=== PATIENT | male | born 1940 | race Caucasian/White ===

== ENCOUNTER 2017-02-27 16:32 | Outpatient (RCR) | payer MEDICARE, SELFPAY ==
[2017-02-27 17:45] LABS: Prothrombin Time (Protime)PT. 22.1 SECONDS (11.7-14.9)
== END 2017-02-27 16:45 | disposition home or self-care (01) ==
LOC: LAB 16:32
PROVIDERS: Family Provider Family Medicine; PCP Family Medicine; Visit Provider Internal Medicine Cardiovascular Disease
DX: I48.0 Paroxysmal atrial fibrillation (principal); Z79.899 Other long term (current) drug therapy
CPT/HCPCS: 36415; 85610

== ENCOUNTER 2017-03-28 13:13 | Outpatient (RCR) | payer MEDICARE, SELFPAY ==
[2017-03-28 13:41] LABS: International Normalized Ratio 2.5; Prothrombin Time (Protime)PT. 26.3 SECONDS (11.7-14.9)
== END 2017-03-28 13:45 | disposition home or self-care (01) ==
LOC: LAB 13:13
PROVIDERS: Family Provider Family Medicine; PCP Family Medicine; Visit Provider Internal Medicine Cardiovascular Disease
DX: I48.91 Unspecified atrial fibrillation (principal); Z79.01 Long term (current) use of anticoagulants; I25.10 Atherosclerotic heart disease of native coronary artery without angina pectoris; Z95.2 Presence of prosthetic heart valve
CPT/HCPCS: 36415; 85610

== ENCOUNTER → 2017-04-24 10:25 | Outpatient (CLI) | payer MEDICARE, SELFPAY ==
[2017-04-24 11:07] LABS: International Normalized Ratio 2.4; Prothrombin Time (Protime)PT. 26.6 SECONDS (11.7-14.9)
== END ==
PROVIDERS: Family Provider Family Medicine; PCP Family Medicine; Visit Provider Internal Medicine Cardiovascular Disease
DX: I48.91 Unspecified atrial fibrillation (principal); I25.10 Atherosclerotic heart disease of native coronary artery without angina pectoris; Z95.2 Presence of prosthetic heart valve; Z79.01 Long term (current) use of anticoagulants
CPT/HCPCS: 36415; 85610

== ENCOUNTER 2017-06-06 12:52 | Outpatient (RCR) | payer MEDICARE, SELFPAY ==
[2017-06-06 14:50] LABS: Prothrombin Time (Protime)PT. 31.5 SECONDS (11.7-14.9)
== END 2017-06-06 13:00 | disposition home or self-care (01) ==
LOC: LAB 12:52
PROVIDERS: Visit Provider Internal Medicine Cardiovascular Disease
DX: I48.91 Unspecified atrial fibrillation (principal); Z79.01 Long term (current) use of anticoagulants; I25.10 Atherosclerotic heart disease of native coronary artery without angina pectoris; Z95.2 Presence of prosthetic heart valve
CPT/HCPCS: 36415; 85610

== ENCOUNTER 2017-07-01 12:09 | Outpatient (RCR) | payer MEDICARE, SELFPAY ==
[2017-07-01 13:30] LABS: International Normalized Ratio 2.6; Prothrombin Time (Protime)PT. 28.1 SECONDS (11.7-14.9)
== END 2017-07-01 13:00 | disposition home or self-care (01) ==
LOC: LAB 12:09
PROVIDERS: Visit Provider Internal Medicine Cardiovascular Disease
DX: I48.91 Unspecified atrial fibrillation (principal); Z79.01 Long term (current) use of anticoagulants; I25.10 Atherosclerotic heart disease of native coronary artery without angina pectoris; Z95.2 Presence of prosthetic heart valve
CPT/HCPCS: 36415; 85610

== ENCOUNTER 2017-08-05 11:51 | Outpatient (RCR) | payer MEDICARE, SELFPAY ==
[2017-08-05 12:17] LABS: International Normalized Ratio 3.1; Prothrombin Time (Protime)PT. 31.8 SECONDS (11.7-14.9)
== END 2017-08-05 13:00 | disposition home or self-care (01) ==
LOC: LAB 11:51
PROVIDERS: Visit Provider Internal Medicine Cardiovascular Disease
DX: I48.91 Unspecified atrial fibrillation (principal); Z79.01 Long term (current) use of anticoagulants; I25.10 Atherosclerotic heart disease of native coronary artery without angina pectoris; Z95.2 Presence of prosthetic heart valve
CPT/HCPCS: 36415; 85610

== ENCOUNTER 2017-08-22 14:24 | Outpatient (RCR) | payer MEDICARE, SELFPAY | END 2017-08-22 16:00 | disposition home or self-care (01) | LOC: LAB 14:24 | PROVIDERS: Visit Provider Internal Medicine Cardiovascular Disease | DX: I25.10 Atherosclerotic heart disease of native coronary artery without angina pectoris (principal); I48.91 Unspecified atrial fibrillation; Z79.01 Long term (current) use of anticoagulants; Z95.2 Presence of prosthetic heart valve | CPT/HCPCS: 36415; 85610 ==

== ENCOUNTER 2017-09-23 11:30 | Outpatient (RCR) | payer MEDICARE, SELFPAY ==
[2017-09-23 12:18] LABS: International Normalized Ratio 2.7; Prothrombin Time (Protime)PT. 28.6 SECONDS (11.7-14.9)
== END 2017-10-20 13:09 | disposition home or self-care (01) ==
LOC: LAB 11:30
PROVIDERS: Visit Provider Internal Medicine Cardiovascular Disease
DX: I25.10 Atherosclerotic heart disease of native coronary artery without angina pectoris (principal); I48.91 Unspecified atrial fibrillation; Z79.01 Long term (current) use of anticoagulants; Z95.2 Presence of prosthetic heart valve
CPT/HCPCS: 36415; 85610

== ENCOUNTER 2017-10-21 13:10 | Outpatient (RCR) | payer MEDICARE, SELFPAY ==
[2017-10-21 13:54] LABS: International Normalized Ratio 2.5; Prothrombin Time (Protime)PT. 26.8 SECONDS (11.7-14.9)
== END 2017-10-21 14:00 | disposition home or self-care (01) ==
LOC: LAB 13:10
PROVIDERS: Visit Provider Internal Medicine Cardiovascular Disease
DX: I25.10 Atherosclerotic heart disease of native coronary artery without angina pectoris (principal); I48.91 Unspecified atrial fibrillation; Z79.01 Long term (current) use of anticoagulants; Z95.2 Presence of prosthetic heart valve
CPT/HCPCS: 36415; 85610

== ENCOUNTER → 2017-11-10 12:23 | Outpatient (CLI) | payer MEDICARE, SELFPAY ==
--- NOTE | 2017-11-10 12:25 | ECHOD_ITS ---
Version 2 Reason For Study: VAVLE REPL EVAL Procedure This was a 2D Doppler, Color Flow transthoracic echocardiogram. The exam was of adequate technical quality. Exam performed in department. Left Ventricle Normal LV size. Segmental dysfunction with preserved ejection fraction (see wall motion). The estimated ejection fraction is 55 %. Paradoxical septal wall motion c/w a post op state and electronic ventricular paced rhythm. There is evidence of diastolic dysfunction. Basal inferoseptal: Hypokinetic. Mid-inferoseptal : Hypokinetic. Mid-anteroseptal : Hypokinetic. Septal [place] : Hypokinetic. Right Ventricle Normal RV size. ICD or pacer leads identified within the right ventricle. Normal systolic function. Atria The left atrium is mildly enlarged. Normal right atrium. ICD or pacer leads identified within the right atrium. No doppler evidence for ASD. Mitral Valve There is moderate mitral annular calcification. Stable appearing bioprosthetic mitral valve apparatus. Trivial transvalvular insufficiency of the mitral valve. Tricuspid Valve Normal tricuspid valve. Moderate (2+) tricuspid valve insufficiency. Right ventricular systolic pressure estimated to be 45 mmHg. Aortic Valve Stable appearing bioprosthetic aortic valve apparatus. Pulmonic Valve The pulmonic valve is not well visualized. Great Vessels Normal sized aortic root. Pericardium/Pleural No pericardial effusion. MMode/2D Measurements & Calculations LVIDd: 5.0 cm IVSd: 1.1 cm LVOT diam: 2.1 cm LVIDs: 3.4 cm LVPWd: 1.0 cm LVOT area: 3.6 cm2 RVDd: 4.3 cm FS: 31.6 % Ao root diam: 2.8 cm LAV(MOD-bp): 73.3 ml LA A4 area: 23.1 cm2 LA dimension: 4.4 cm LAV(MOD-bp) Indexed: 31.9 ml/m2 LAV(MOD-sp2): 71.1 ml LAV(MOD-sp4): 72.6 ml RA A4 area: 17.1 cm2 Doppler Measurements & Calculations Lat Peak E' Mac: 7.6 cm/sec Med Peak E' Mac: 2.8 cm/sec MV V2 max: 244.6 cm/sec MV max P.9 mmHg MV V2 mean: 150.6 cm/sec MV mean P.5 mmHg MV V2 VTI: 54.2 cm MVA(VTI): 0.94 cm2 Ao V2 max: 246.6 cm/sec LV V1 max: 62.9 cm/sec SV(LVOT): 50.8 ml Ao max P.4 mmHg LV V1 max P.6 mmHg Ao V2 mean: 175.3 cm/sec LV V1 mean P.90 mmHg Ao mean P.6 mmHg LV V1 mean: 45.1 cm/sec Ao V2 VTI: 52.7 cm LV V1 VTI: 14.2 cm LC(I,D): 0.96 cm2 LC(V,D): 0.91 cm2 TR max mac: 324.4 cm/sec TR max P.2 mmHg Interpretation Summary Segmental dysfunction with preserved ejection fraction (see wall motion). The estimated ejection fraction is 55 %. Paradoxical septal wall motion c/w a post op state and electronic ventricular paced rhythm. The left atrium is mildly enlarged. There is moderate mitral annular calcification. Stable appearing bioprosthetic mitral valve apparatus. Trivial transvalvular insufficiency of the mitral valve. Moderate (2+) tricuspid valve insufficiency. Stable appearing bioprosthetic aortic valve apparatus. Right ventricular systolic pressure estimated to be 45 mmHg. There is evidence of diastolic dysfunction. ICD or pacer leads identified within the right atrium ICD or pacer leads identified within the right ventricle. Ordering Physician: Taj Cabral Referring Physician: TAY GARBER DO Performed By: Ivanna Chance, RDCS, RVT
== END ==
PROVIDERS: Visit Provider Internal Medicine Cardiovascular Disease
DX: I25.10 Atherosclerotic heart disease of native coronary artery without angina pectoris (principal); I48.1 Persistent atrial fibrillation; Z95.1 Presence of aortocoronary bypass graft; Z95.3 Presence of xenogenic heart valve; Z95.0 Presence of cardiac pacemaker
CPT/HCPCS: 93306

== ENCOUNTER 2017-11-21 12:49 | Outpatient (RCR) | payer MEDICARE, SELFPAY ==
[2017-11-21 13:43] LABS: International Normalized Ratio 2.5; Prothrombin Time (Protime)PT. 26.7 SECONDS (11.7-14.9)
== END 2017-11-21 14:00 | disposition home or self-care (01) ==
LOC: LAB 12:49
PROVIDERS: Referring Provider Internal Medicine Cardiovascular Disease; Visit Provider Internal Medicine Cardiovascular Disease
DX: I48.91 Unspecified atrial fibrillation (principal); I25.10 Atherosclerotic heart disease of native coronary artery without angina pectoris; Z79.01 Long term (current) use of anticoagulants; Z95.2 Presence of prosthetic heart valve
CPT/HCPCS: 36415; 85610

== ENCOUNTER 2017-12-29 13:42 | Outpatient (RCR) | payer MEDICARE, SELFPAY ==
[2017-12-29 15:56] LABS: International Normalized Ratio 2.2; Prothrombin Time (Protime)PT. 24.2 SECONDS (11.7-14.9)
== END 2018-01-16 09:35 | disposition home or self-care (01) ==
LOC: LAB 13:42
PROVIDERS: Referring Provider Internal Medicine Cardiovascular Disease; Visit Provider Internal Medicine Cardiovascular Disease
DX: I48.91 Unspecified atrial fibrillation (principal); I25.10 Atherosclerotic heart disease of native coronary artery without angina pectoris; Z79.01 Long term (current) use of anticoagulants; Z95.2 Presence of prosthetic heart valve
CPT/HCPCS: 36415; 85610

== ENCOUNTER 2018-01-27 09:01 | Outpatient (RCR) | payer MEDICARE, SELFPAY ==
[2018-01-27 09:48] LABS: International Normalized Ratio 2.2; Prothrombin Time (Protime)PT. 24.7 SECONDS (11.7-14.9)
--- OUTSIDE RECORDS SUMMARY | 2018-03-15 07:34 | XMS RPT_ITS ---
:1940 Author Organization OHIP Support Name Relationship Address Phone BROOKS, DEXTER Unavailable Unavailable + [facility] [place] [address] PAULA BAIG Unavailable [address] + [place] [address] R Unavailable Unavailable Unavailable BROOKS, DEXTER Unavailable Unavailable + [place] [address] PAULA BAIG Unavailable [address] + [place] [address] R Unavailable Unavailable Unavailable BROOKS, DEXTER Unavailable Unavailable + [place] [address] PAULA BAIG Unavailable [address] + [place] [address] R Unavailable Unavailable Unavailable BROOKS, DEXTER Unavailable Unavailable + [facility] [place] [place] [address] PAULA BAIG Unavailable [address] + [place] [address] R Unavailable Unavailable Unavailable BROOKS, DEXTER Unavailable Unavailable + [place] [address] PAULA BAIG Unavailable [address] + [place] [address] R Unavailable Unavailable Unavailable BROOKS, DEXTER Unavailable Unavailable + [place] [address] DESTINEY ABIGRA Jovanna Unavailable [address] + [place] [address] R Unavailable Unavailable Unavailable BROOKS, DEXTER Unavailable Unavailable + [place] [address] PAULA BAIG Unavailable [address] + [place] [address] R Unavailable Unavailable Unavailable BROOKS, DEXTER Unavailable Unavailable + [place] [address] PAULA BAIG K Unavailable [address] + [place] [address] R Unavailable Unavailable Unavailable BROOKS, DEXTER Unavailable Unavailable + [place] [address] DESTINEY BAIGRA K Unavailable [address] + [place] [address] R Unavailable Unavailable Unavailable BROOKS, DEXTER Unavailable Unavailable + [place] [address] DESTINEY BAIGRA K Unavailable [address] + [place] [address] R Unavailable Unavailable Unavailable BROOKS, DEXTER Unavailable Unavailable + [place] [address] PAULA BAIG K Unavailable [address] + [place] [address] R Unavailable Unavailable Unavailable BROOKS, DEXTER Unavailable Unavailable + PAULA BAGI K Unavailable [address] + [place] [address] R Unavailable Unavailable Unavailable BROOKS, DEXTER Unavailable Unavailable + PAULA BAIG Unavailable [address] + [place] [address] R Unavailable Unavailable Unavailable BROOKS, DEXTER Unavailable Unavailable + PAULA BAIG K Unavailable [address] + [place] [address] R Unavailable Unavailable Unavailable BROOKS, DEXTER Unavailable Unavailable + PAULA BAIG K Unavailable [address] + [place] [address] R Unavailable Unavailable Unavailable BROOKS, DEXTER Unavailable Unavailable + PAULA BAIG K Unavailable [address] + [place] [address] R Unavailable Unavailable Unavailable BROOKS, DEXTER Unavailable Unavailable + PAULA BAIG K Unavailable [address] + [place] [address] R Unavailable Unavailable Unavailable BROOKS, DEXTER Unavailable Unavailable + DESTINEY BAIGRA K Unavailable [address] + [place] [address] R Unavailable Unavailable Unavailable DEXTER BROOKS Unavailable Unavailable + PAULA BAIG Unavailable [address] + [place] [address] R Unavailable Unavailable Unavailable PAULA BAIG Unavailable NA + [place], [place] R Unavailable Unavailable Unavailable Care Team Providers Name Role Estelle GARBER DO, DR. CROSS Attending Unavailable SHIRLENE TEMPLE, DR. CROSS Primary Care Unavailable Moodispaw, Taj Attending Unavailable MoodispawTaj Referring Unavailable Shirlene, Tay Primary Care Unavailable Moodispaw, Taj Attending Unavailable Moodispaw, Taj Referring Unavailable BrownJason Primary Care Unavailable Moodispaw, Taj Attending Unavailable Moodispaw, Taj Referring Unavailable Shirlene, Tay Primary Care Unavailable Moodispaw, Taj Attending Unavailable Moodispaw, Taj Referring Unavailable BrownJason Primary Care Unavailable Moodispaw, Taj Attending Unavailable Moodispaw, Taj Referring Unavailable Shirlene, Tay Primary Care Unavailable Dori Dunaway Attending Unavailable Brown, Jason Referring Unavailable Moodispaw, Taj Attending Unavailable Moodispaw, Taj Referring Unavailable Shirlene, Tay Primary Care Unavailable Moodispaw, Taj Attending Unavailable Moodispaw, Taj Referring Unavailable Shirlene, Tay Primary Care Unavailable Dori Dunaway Attending Unavailable Shirlene, Tay Referring Unavailable Shirlene, Tay Primary Care Unavailable Moodispaw, Taj Attending Unavailable Moodispaw, Taj Referring Unavailable Shirlene, Tay Primary Care Unavailable Moodispaw, Taj Attending Unavailable Moodispaw, Taj Referring Unavailable Shirlene, Tay Primary Care Unavailable BaiCris feldman Attending Unavailable Moodispaw, Taj Attending Unavailable Brown, Jason Referring Unavailable Shirlene, Tay Primary Care Unavailable Moodispaw, Taj Attending Unavailable Moodispaw, Taj Referring Unavailable Shirlene, Tay Primary Care Unavailable Moodispalaurel, Taj Attending Unavailable MoodispawTaj Referring Unavailable Shirlene, Tay Primary Care Unavailable Moodispalaurel, Taj Attending Unavailable Moodispaw, Taj Referring Unavailable Moodispaw, Taj Attending Unavailable Moodispaw, Taj Referring Unavailable Shirlene, Tay Primary Care Unavailable Emelyn, Dori Attending Unavailable Tay Garber Referring Unavailable Taj Cabral Attending Unavailable Taj Cabral Referring Unavailable Tay Garber Primary Care Unavailable Dori Dunaway Attending Unavailable Jason Seymour Referring Unavailable PROBLEMS PROBLEMS DATE TYPE CONDITION / CODE ATTENDING STATUS SOURCE 01/27/2018 Admitting Hyperlipidemia, SHIRLENE , Active [facility] Diagnosis unspecified / DR. TAY Rico E78.5(ICD-10) Repository 01/27/2018 Admitting Type 2 diabetes [facility], Active [facility] Diagnosis mellitus without DR. TAY Rico complications / Repository E11.9(ICD-10) 01/27/2018 Admitting Benign prostatic [facility], Active [facility] Diagnosis hyperplasia without DR. TAY Rico lower urinary tract Repository symptoms / N40.0(ICD-10) 02/16/2018 Unknown I48.91 - Unspecified [place], Active [facility] atrial fibrillation [facility] / I48.91(ICD-10) Hospital Repository 02/16/2018 Unknown I25.10 - Mood[place]aw, Active [facility] Atherosclerotic [facility] heart disease of Hospital big [place] coronary Repository artery without angina pectoris / I25.10(ICD-10) 01/19/2018 Unknown Z79.01 - correction [facility], Active [facility] (current) use of [facility] anticoagulants / Hospital Z79.01(ICD-10) Repository 12/04/2017 Unknown R07.9 - Chest pain, Moodispaw, Active [facility] unspecified / [facility] R07.9(ICD-10) Hospital Repository 11/03/2017 Unknown I48.1 - Persistent Mood[place], Active [facility] atrial fibrillation [facility] / I48.1(ICD-10) Hospital Repository 11/03/2017 Unknown Z95.1 - Presence of Moodispaw, Active [facility] aortocoronary bypass [facility] graft / Hospital Z95.1(ICD-10) Repository 11/03/2017 Unknown Z95.3 - Presence of Moodispaw, Active [facility] xenogenic heart [facility] valve / Hospital Z95.3(ICD-10) Repository 11/03/2017 Unknown Z95.0 - Presence of Moodispaw, Active [facility] cardiac pacemaker / [facility] Z95.0(ICD-10) Hospital Repository PROCEDURES PROCEDURES No Procedure Records FoundRESULTS RESULTS PROTHROMBIN TIME W/INR Collected: 02/27/2018 Status: F Source: [place] 1:20 PM [facility] [place] CODE TESTS RESULT OUT OF RANGE REFERENCE UNITS LAB L300.4150 11.7-14.9 SECONDS High PROTIME 25.3 LAB L300.4200 Normal INR 2.3 Performed By: #### L300.3900 #### [facility] [address] [facility] [place], [place], [address] PROTHROMBIN TIME W/INR Collected: 01/27/2018 Status: F Source: [place] 9:15 AM [facility] [place] TYPE CODE TESTS RESULT OUT OF RANGE REFERENCE UNITS LAB L300.4150 11.7-14.9 SECONDS High PROTIME 24.7 LAB L300.4200 Normal INR 2.2 Performed By: #### L300.3900 #### [facility] [address] [place], [address] PSA Collected: 01/27/2018 Status: F Source: [place] [facility] 8:24 AM [facility] REPOSITORY TYPE CODE TESTS RESULT OUT OF REFERENCE UNITS RANGE LAB PSA(LOINC) 0.00-4.00 ng/mL Prostate 1.15 Specific Antigen Performed By: #### PSA, LIPID, CMP, GFR #### [address] [address] LIPID Collected: 01/27/2018 Status: F Source: [facility] 8:24 AM [facility] REPOSITORY TYPE CODE TESTS RESULT OUT OF REFERENCE UNITS RANGE LAB CHOL(LOINC 0-200 mg/dL ) Cholesterol 143 Result Comment: Cholesterol Reference Interval: Less than 200 Desirable 200-239 Borderline high risk 240 and above High risk LAB TRIG(LOINC) 0-150 mg/dL Triglycerides 124 Result Comment: Triglyceride Reference Interval: Less than 150 Normal 150-199 Borderline high risk 200-499 High risk 500 or higher Very high risk LAB HD(LOINC) 40-60 mg/dL HDL Low Cholesterol 35 LAB LDL(LOINC) 0-130 mg/dL LDL Cholesterol 83 Performed By: #### PSA, LIPID, CMP, GFR #### [address] [address] CMP Collected: 01/27/2018 Status: F Source: [facility] 8:24 AM [facility] REPOSITORY TYPE CODE TESTS RESULT OUT OF REFERENCE UNITS RANGE LAB GLU(LOINC) 83-110 mg/dL Glucose High Level 120 LAB NA(LOINC) 136-145 mmol/L Sodium Level 141 LAB K(LOINC) 3.5-5.1 mmol/L Potassium Level 4.9 LAB CL(LOINC) 98-107 mmol/L Chloride 104 LAB CO2(LOINC) 23-31 mmol/L CO2 29 LAB EBAL(LOINC mEq/L ) Electrolyte Balance 8.0 LAB BUN(LOINC) 7-18 mg/dL BUN High 35 LAB CRE(LOINC) 0.70-1.30 mg/dL Creatinine High Lvl (s) 1.62 LAB BC(LOINC) 7-27 ratio BUN/Creatinine 22 Ratio LAB CA(LOINC) 8.4-10.2 mg/dL Calcium Lvl 9.0 LAB PROT(LOINC 6.4-8.2 G/dL ) Total Protein 8.1 LAB ALB(LOINC) 3.4-4.8 G/dL Albumin Level 4.2 LAB GLB(LOINC) G/dL Globulin 3.9 LAB AG(LOINC) 1.1-2.5 ratio A/G Ratio 1.1 LAB BILT(LOINC 0.2-1.0 mg/dL ) Bili Total 0.3 LAB AP(LOINC) 40-135 U/L Alk Phos 117 LAB AST(LOINC) 10-40 U/L AST/SGOT 26 LAB ALT(LOINC) 10-35 U/L ALT/SGPT 24 Performed By: #### PSA, LIPID, CMP, GFR #### [place] [address] .GFR Collected: 01/27/2018 Status: F Source: [facility] 8:24 AM [facility] REPOSITORY TYPE CODE TESTS RESULT OUT OF REFERENCE UNITS RANGE LAB GFRAA(LOINC ml/min/1.73 ) sqm GFR 50 [place] Result Comment: GFR Population mean for , Non- Americans Ages 20-29 = 116 mL/min/1.73 sq.m. Ages 30-39 = 107 mL/min/1.73 sq.m. Ages 40-49 = 99 mL/min/1.73 sq.m. Ages 50-59 = 93 mL/min/1.73 sq.m. Ages 60-69 = 85 mL/min/1.73 sq.m. Ages 70+ = 75 mL/min/1.73 sq.m. Chronic Kidney Disease: Less than 60 mL/min/1.73 square meters End Stage Renal Disease: Less than 15 mL/min/1.73 square meters LAB GFRNO(LOINC) ml/min/1.73sqm GFR Non- 42 Result Comment: GFR Population mean for , Non- Americans Ages 20-29 = 116 mL/min/1.73 sq.m. Ages 30-39 = 107 mL/min/1.73 sq.m. Ages 40-49 = 99 mL/min/1.73 sq.m. Ages 50-59 = 93 mL/min/1.73 sq.m. Ages 60-69 = 85 mL/min/1.73 sq.m. Ages 70+ = 75 mL/min/1.73 sq.m. Chronic Kidney Disease: Less than 60 mL/min/1.73 square meters End Stage Renal Disease: Less than 15 mL/min/1.73 square meters Performed By: #### PSA, LIPID, CMP, GFR #### [place] [address] PACEMAKER CHECK Observed: 01/13/2018 Status: F Source: [place] 2:20 PM [facility] [place] [facility] [address] [place] [address]. [address] [place] [address] Pacemaker Check Date of Service: 01/13/18 1245 MR#: [id number] Acct: [id number] Name: ANGELITO BAIG Rep #: [id number] : 1940 From: Dori Dunaway Age/Sex: 77/M [place] [facility] [place]: Signed Billing Codes PM Device Codes: PM Dev Interrogate (Remot 01/13/18 1252 <Electronically signed by Dori Dunaway > Date Dori Dunaway 01/13/18 1420<Electronically signed by Benjie Doran MD> Cosigner Signature: Date (if applicable) Benjie Doran MD CC: PROTHROMBIN TIME W/INR Collected: 12/29/2017 Status: F Source: [place] 1:56 PM [facility] [place] TYPE CODE TESTS RESULT OUT OF RANGE REFERENCE UNITS LAB L300.4150 11.7-14.9 SECONDS High PROTIME 24.2 LAB L300.4200 Normal INR 2.2 Performed By: #### L300.3900 #### [facility] [address] [place], [address] PROTHROMBIN TIME W/INR Collected: 11/21/2017 Status: F Source: [place] 12:52 PM [facility] [place] TYPE CODE TESTS RESULT OUT OF RANGE REFERENCE UNITS LAB L300.4150 11.7-14.9 SECONDS High PROTIME 26.7 LAB L300.4200 Normal INR 2.5 Performed By: #### L300.3900 #### [facility] [address] [place], [place], [address] ECHOCARDIOGRAM COMPLETE Observed: 11/10/2017 Status: F Source: [place] 5:56 PM [facility] [place] [facility] Cardiovascular Services [address] [place] [address] Echo Complete 11/10/17 1307 MR#: [id number] Acct: [id number] Name: ANGELITO BAIG Rep #: [id number] : 1940 77 From: Taj Cabral MD Attending Dr: Taj Cabral MD Status: REG CLI Ordering Dr: Taj Cabral MD Date: 11/10/17 Location: [facility] Sex: M C Admitted: Version 2 Reason For Study: VAVLE REPL EVAL Procedure This was a 2D Doppler, Color Flow transthoracic echocardiogram. The exam was of adequate technical quality. Exam performed in department. Left Ventricle Normal LV size. Segmental dysfunction with preserved ejection fraction (see wall motion). The estimated ejection fraction is 55 %. Paradoxical septal wall motion c/w a post op state and electronic ventricular paced rhythm. There is evidence of diastolic dysfunction. Basal inferoseptal: Hypokinetic. Mid-inferoseptal : Hypokinetic. Mid-anteroseptal : Hypokinetic. Septal [place] : Hypokinetic. Right Ventricle Normal RV size. ICD or pacer leads identified within the right ventricle. Normal systolic function. Atria The left atrium is mildly enlarged. Normal right atrium. ICD or pacer leads identified within the right atrium. No doppler evidence for ASD. Mitral Valve There is moderate mitral annular calcification. Stable appearing bioprosthetic mitral valve apparatus. Trivial transvalvular insufficiency of the mitral valve. Tricuspid Valve Normal tricuspid valve. Moderate (2+) tricuspid valve insufficiency. Right ventricular systolic pressure estimated to be 45 mmHg. Aortic Valve Stable appearing bioprosthetic aortic valve apparatus. Pulmonic Valve The pulmonic valve is not well visualized. Great Vessels Normal sized aortic root. Pericardium/Pleural No pericardial effusion. MMode/2D Measurements AND Calculations LVIDd: 5.0 cm IVSd: 1.1 cm LVOT diam: 2.1 cm LVIDs: 3.4 cm LVPWd: 1.0 cm LVOT area: 3.6 cm2 RVDd: 4.3 cm FS: 31.6 % Ao root diam: 2.8 cm LAV(MOD-bp): 73.3 ml LA A4 area: 23.1 cm2 LA dimension: 4.4 cm LAV(MOD-bp) Indexed: 31.9 ml/m2 LAV(MOD-sp2): 71.1 ml LAV(MOD-sp4): 72.6 ml RA A4 area: 17.1 cm2 Doppler Measurements AND Calculations Lat Peak E' Mac: 7.6 cm/sec Med Peak E' Mac: 2.8 cm/sec MV V2 max: 244.6 cm/sec MV max P.9 mmHg MV V2 mean: 150.6 cm/sec MV mean P.5 mmHg MV V2 VTI: 54.2 cm MVA(VTI): 0.94 cm2 Ao V2 max: 246.6 cm/sec LV V1 max: 62.9 cm/sec SV(LVOT): 50.8 ml Ao max P.4 mmHg LV V1 max P.6 mmHg Ao V2 mean: 175.3 cm/sec LV V1 mean P.90 mmHg Ao mean P.6 mmHg LV V1 mean: 45.1 cm/sec Ao V2 VTI: 52.7 cm LV V1 VTI: 14.2 cm LC(I,D): 0.96 cm2 LC(V,D): 0.91 cm2 TR max mac: 324.4 cm/sec TR max P.2 mmHg Interpretation Summary Segmental dysfunction with preserved ejection fraction (see wall motion). The estimated ejection fraction is 55 %. Paradoxical septal wall motion c/w a post op state and electronic ventricular paced rhythm. The left atrium is mildly enlarged. There is moderate mitral annular calcification. Stable appearing bioprosthetic mitral valve apparatus. Trivial transvalvular insufficiency of the mitral valve. Moderate (2+) tricuspid valve insufficiency. Stable appearing bioprosthetic aortic valve apparatus. Right ventricular systolic pressure estimated to be 45 mmHg. There is evidence of diastolic dysfunction. ICD or pacer leads identified within the right atrium ICD or pacer leads identified within the right ventricle. Ordering Physician: Taj Cabral Referring Physician: TAY GARBER DO Performed By: Ivanna Chance, TAZ, RVT 11/10/17 1756 Date Taj Cabral MD CC: Tay Garber DO; Taj Cabral MD Date Dictated: 11/10/17 1307 Date Transcribed: 11/10/171753 Radio Presenter: Signed CARDIOLOGY VISIT Observed: 11/03/2017 Status: F Source: [place] REPORT 12:32 PM [facility] [place] [facility] [address] [facility] [place] [address] OFFICE VISIT Date of Service: 11/03/17 MR#: [id number] Acct: [id number] Name: ANGELITO BAIG Rep #: [id number] : 1940 Provider: Taj Cabral MD Age/Sex: 77/M [place] [facility] [place]: Signed HPI HPI Details: ANGELITO BAIG, is a 77 M who presents to the office today for for outpatient cardiovascular follow-up. Overall he states he has been doing well. He denies any ongoing chest discomfort or difficulty breathing either at rest or with exertion. He has had no palpitations and no near syncope or syncope. He remains very active. His states he acts as if he is a young person and keeps going. He notes that his lipids have been checked by his primary care physician. A copy is unavailable for review at this time. Otherwise he states he has not been required to have any other cardiovascular diagnostic studies or testing performed. Intake Vital Signs11/03/17 Height 6 ft 3 in 11/03/17 Weight: 201 lb 11/03/17 Body Mass Index (BMI) 25.1 11/03/17 Blood Pressure 118/60 Intake Visit Reasons: 6-9 M FU Allergies No Known Allergies Allergy (Verified 11/03/17 11:43) Medications Aspirin E.C. [Ecotrin] 81 mg PO DAILY@0800 10/03/14 [History Confirmed 11/03/17] Glimepiride [Amaryl] 2 mg PO DAILY 10/03/14 [History Confirmed 11/03/17] Isosorbide Mononitrate [Imdur] 30 mg PO DAILY 10/03/14 [History Confirmed 11/03/17] Lisinopril [Zestril] 5 mg PO DAILY 10/03/14 [History Confirmed 11/03/17] Simvastatin [Zocor] 80 mg PO QHS 10/03/14 [History Confirmed 11/03/17] Furosemide [Lasix] 20 mg PO DAILY 02/13/15 [History Confirmed 11/03/17] Insulin Detemir [Levemir FlexPen] 0 units SC QHS 02/13/15 [History Confirmed 11/03/17] Multivitamins,Therapeutic [Multivitamin] 1 tab PO DAILY 02/13/15 [History Confirmed 11/03/17] ferrous sulfate 325 mg (65 mg iron) tablet,delayed release 325 mg PO BID tab 01/24/17 [History Confirmed 11/03/17] metformin 500 mg tablet 500 mg PO BID 01/24/17 [History Confirmed 11/03/17] warfarin 2 mg tablet 2 mg PO .COMPLEX 79 Days #90 tab 06/13/17 [Rx Confirmed 11/03/17] warfarin 6 mg tablet 6 mg PO .COMPLEX #90 tab 06/13/17 [Rx Confirmed 11/03/17] nitroglycerin 0.4 mg sublingual tablet 0.4 mg SUBLINGUAL Q5M PRN #25 tab 11/03/17 [Rx Confirmed 11/03/17] [facility] Medical History Persistent atrial fibrillation (Chronic) Type 2 diabetes mellitus (Chronic) Cardiomyopathy in other diseases classified elsewhere (Chronic) Premature ventricular contraction (Acute) AV junctional rhythm (Acute) Presence of permanent cardiac pacemaker (Chronic 04/03/15) History of mitral valve replacement with bioprosthetic valve (Chronic 10/31/14) History of aortic valve replacement with bioprosthetic valve (Chronic 10/31/14) Atherosclerotic heart disease of [place] coronary artery without angina pectoris (Chronic) Bicuspid aortic valve (Acute) Hyperlipidemia (Acute) 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) Sick sinus syndrome (Acute) Hypertension (Chronic) Surgical History History of coronary artery bypass surgery (Chronic) History of laparoscopic cholecystectomy (Resolved) Family History Father CAD (coronary artery disease) Diabetes Mother CAD (coronary artery disease) Brother CAD (coronary artery disease) Diabetes Sister CAD (coronary artery disease) Diabetes Cancer Social History Smoking Status: Former smoker alcohol intake: never substance use type: does not use diet: diabetic well-balanced diet: daily or most days caffeine: Yes Type: coffee, carbonated beverages what type of physical activity do you participate in: none seatbelt use: always do you feel safe at home: Yes ROS Const Const: Positive for fatigue (occasional); negative for weakness, weight gain, weight loss, frequent falls or excessive sweating Eyes Eyes: Negative for change in vision, blurry vision or transient loss of vision ENT ENT: Negative for dizziness or balance problems Cardio Chest Pain: No Palpitations: No Edema: None Muscle aches with walking: None Resp Respiratory: Negative for SOB with activity or SOB at rest GI GI: Negative vomiting or vomiting blood/hematemesis : Negative for hematuria Musc Musc: Positive for muscle aches/ myalgia (muscle cramps to Bilat LE when elevated); negative for balance problems, muscle weakness or joint pain Skin Skin: Negative non-healing lesions or rash Neuro Neuro: Negative for weakness, blurry vision, dizziness, lightheadedness, frequent falls or orthostatic symptoms Yasmani Hematologic/Lymphatic: Negative for easy bleeding Endo Endo: Positive for fatigue (occasional); negative for excessive sweating Psych Psych: Negative for anxiety or depression Allergy Allergy/Immunology: Negative for hives, Negative for rash Cardiology Exam Const Appearance: cooperative, no acute distress, well developed, healthy appearing, comfortable and well groomed Nutritional Appearance: average body habitus Orientation: alert, awake and oriented x3 Head Head: normocephalic and normal to inspection; negative atraumatic Ears: hearing grossly normal bilaterally Nose: external nose normal Face and Sinus: face symmetric Mouth: oral mucosae normal Teeth and gingiva: fair dentition Eyes General: appearance normal, both eyes and all related structures Conjunctivae: conjunctivae normal Pupils: PERRL EOM: EOM intact bilaterally Neck Neck: normal visual inspection and full ROM Carotids: other (radiation of murmur in to carotids) Chest Chest inspection: normal inspection of the chest, symmetric chest movement and Pacemaker/ICD Yes left pectoral incision Auscultation: Bilateral: Clear to Auscultation Cardio Palpation: normal PMI Rate: regular rate Rhythm: regular rhythm Heart sounds: S1 normal, S2 normal and murmur; negative rub or gallop Murmur: Grade 3/6, harsh, mid systolic, LLSB and radiates to carotids GI GI: normal to inspection, soft, no hepatosplenomegaly and bowel sounds present; negative tender Neuro General: alert, awake, oriented x3 and moves all extremities Skin Skin: no rashes or lesions noted Extremities Pulses: Normal: Right Posterior Tibial Pulse, Left Posterior Tibial Pulse, Right Radial Pulse, Left Radial Pulse Lower Extremity Edema: None: Bilateral Psych Psychological: normal affect Supplemental Info He did have a transthoracic echocardiogram on 11/08/2014. This was performed through the [facility] system. According to their note this was performed status post his AVR and MVR procedure. His left ventricle was reported as normal with an LVEF of 55%, a #27 mm Biocor bioprosthetic mitral valve was in place with no MR, a #21 mm Sheila- Granado bioprosthetic aortic valve was in place with a peak gradient of 38 mmHg and a mean gradient of 20 mmHg He had a stress test performed on 09/16/2014 at [facility] The patient underwent pharmacologic (regadenoson) evaluation with a peak heart rate of 94 beats per minute (63% predicted maximum heart rate) and a peak blood pressure of 158/70 mmHg. The baseline ECG demonstrated normal sinus rhythm. The peak pharmacologic ECG demonstrated no obvious ECG changes. There were no cardiac dysrhythmias pretest, during pharmacologic infusion, or recovery. The patient had no complaint of chest discomfort during pharmacologic infusion or recovery. The examination was discontinued secondary to completion of protocol. IMPRESSION: 1. Pharmacologic (regadenoson) evaluation. 2. Peak pharmacologic ECG with no obvious ECG changes. 3. Nuclear images pending. MYOCARDIAL PERFUSION IMAGING STUDY: TECHNIQUE: The patient was injected with 14.6 mCi of Tc99m Cardiolite and subsequently rest SPECT Cardiolite nuclear imaging was obtained in the horizontal long, vertical long and short axes views. The patient underwent pharmacologic (regadenoson) evaluation with a peak heart rate of 94 beats per minute (63% predicted maximum heart rate) and a peak blood pressure of 158/70 mmHg. The patient was injected with 43.4 mCi of Tc99m Cardiolite and subsequently stress SPECT Cardiolite nuclear imaging was obtained in the horizontal long, vertical long and short axes views. A gated Cardiolite study at peak stress was obtained. INTERPRETATION: Rest and stress SPECT Cardiolite nuclear imaging both demonstrate subtle decreased tracer uptake in the basal inferior segments extending through the mid inferior segments. This appears to be without significant change. There was also notation of diminished tracer uptake in portions of the distal anteroseptal segments at both rest and stress without significant change. There is notation post stress of diminished tracer uptake in portions of the mid inferolateral segments. There are similar type changes on the resting and stress polar map images. There is notation of diminished end systolic thickening and brightening in the mid inferolateral segments. The gated Cardiolite study demonstrates myocardial thickening and inward wall motion. The reported LVEF was 49%. The aforementioned findings appear compatible with a combination of soft tissue attenuation/artifact with respect to the inferior segments in the distal anteroseptal segments as well as being concerning for an area of stress induced myocardial ischemia in portions of the mid inferolateral segments. IMPRESSION: 1. Rest and stress SPECT Cardiolite nuclear imaging demonstrate myocardial perfusion changes appearing compatible with a combination of soft tissue attenuation/artifact involving portions of the basal to mid inferior segments as well as the distal anteroseptal segments as well as being concerning for an area of stress-induced myocardial ischemia involving portions of the mid inferolateral segments. 2. The gated Cardiolite study reports an LVEF of 49%. He had a diagnostic cardiac catheterization performed on 10/04/2014 at [facility] Final impression: 1. Mildly elevated left ventricular end diastolic pressure compatible decreased diastolic compliance 2. Mild elevation of the intra-primary/right heart pressures (RV systolic/PA systolic) 3. Oxygen saturations: No obvious evidence of intra-cardiac shunting phenomena 4. Left ventricle: A. Normal left ventricle size, wall motion, and systolic function B. Estimated LVEF of 60% 5. Left main coronary artery: A. Proximal 25% appearing stenosis B. Distal 75% eccentric appearing stenosis 6. Left anterior descending coronary artery: A. Status post the diagonal branch: Subtotally occluded with the remainder of the LAD system filling predominantly from the CARDOZA graft with no angiographically significant appearing disease distal to the graft attachment 7. Diagonal branch: A. Proximal minimal luminal irregularities 8. Left circumflex coronary artery: A. Proximal minimal luminal irregularities B. OM1: Proximally occluded with the remainder the vessel filling late, faintly, and partially from left to left collateral flow C. OM 2: Minimal luminal irregularities 9. Right coronary artery: A. Large dominant vessel B. Proximally occluded C. Distal RCA system filling from the SVG graft with no angiographically significant appearing disease distal to the graft attachment 10. CARDOZA to the LAD: A. Patent with no angiographically significant appearing disease 11. SVG graft to the diagonal branch and the LCx OM (sequential graft): A. Proximally occluded-chronic (previously documented as being proximally occluded) 12. SVG graft to the RCA system: A. Patent with no angiographically significant appearing disease 13. Aortic valve: A. Calcified/restricted/stenotic-severe (aortic valve area of 0.7 cm ) 14. Mitral valve annulus: A. Calcified 15. Mitral valve: A. Mild mitral valve regurgitation His initial CABG was performed on 09/02/2000 at [facility] at which time he received a CARDOZA to the LAD, a sequential SVG to the diagonal branch and LCx, and an SVG to the RCA His valvular replacement surgery was performed at [facility] on 10/31/2014 at which time he received a 27 mm Biocor bioprosthetic mitral valve and a #21 mm Sheila- Granado bioprosthetic aortic valve His previous Holter monitor was performed on 03/15/2015 THIS ISA24 HOUR HOLTER MONITOR IN JUNCTIONAL RHYTHM. MINIMUM HEART RATE WAS 36 BPM AT 9:43:23 PM, NO ACTIVITY OR SYMPTOM RECORDED. MAXIMUM HEART RATE WAS 90 BPM AT 12:24:50 PM, NO ACTIVITY OR SYMPTOM RECORDED. AVERAGE HEART RATE NOTED TO BE 44 BPM. RARE PREMATURE ATRIAL COMPLEXES. 4 ATRIAL COUPLETS. 2 ATRIAL RUNS TOTALING 7 BEATS. THE LONGEST RUN WAS 4 BEATS OF PROBABLE ECTOPIC ATRIAL RHYTHM RATE 95 BPM AT 6:45:30 AM. THE FASTEST RUN WAS 3 BEATS OF PROBABLE ECTOPIC ATRIAL RHYTHM RATE 97 BPM AT 7:17:09 PM. RARE PREMATURE VENTRICULAR COMPLEXES. I VENTRICULAR COUPLET. NO RUNS NOTED. THE PATIENT KEPTA24 HOUR DIARY NO ACTIVITY OR SYMPTOMS RECORDED. He does have a permanent pacemaker in place Implanted Device Date Evaluated: 12/09/2016 Follow-up location: Remote Clinical Medical Transcriptionist: EdPuzzle Name: Pancho MEADOWS Model #: L121 Serial #: [id number] Date Implanted: 04/03/2015 Device Characteristics Device: Dual Chamber Type: Pacemaker Remote:Latitude Assessment AND Plan 1. 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 He is going to continue his current medical management. It was not felt he required further cardiac diagnostic studies or therapeutic intervention with respect to his underlying CAD history. Orders Orders: 2. History of coronary artery bypass graft Z95.1 CABG x4- CARDOZA to LAD, sequential SVG to Diag, SVG to CX, and SVG to RCA 09/02/00; Redo CABG x1- SVG to OM 10/31/14 Plan He does have a history of CABG as noted above. During his second open heart surgery procedure he did not require repeat revascularization therapy. Orders Orders: 3. History of aortic valve replacement with bioprosthetic valve Z95.3 21mm Dockery Granado Plan He does have a history of an underlying aortic valve replacement. This will be followed by history, exam, and echocardiogram Orders Orders: 4. History of mitral valve replacement with bioprosthetic valve Z95.3 27mm Biocor bioprothetic valve Plan He has a history of a mitral valve replacement as well as noted above. Again this will be followed by history, exam, and echocardiogram. Orders Orders: 5. Persistent atrial fibrillation I48.1 Plan He has a history of underlying atrial fibrillation. He will continue medical management including anticoagulant therapy. Orders Orders: 6. Presence of permanent cardiac pacemaker Z95.0 Plan He has a history of an underlying permanent pacemaker placed for concerns of junctional rhythm, bradycardia, and sinus arrest. It has been followed and appears to be functioning appropriately. Orders Orders: 7. Hyperlipidemia, unspecified hyperlipidemia type E78.5 Plan He is on medical management. He states his PCP is monitoring his lipid profile. A copy will be requested for continuity of care. 8. correction current use of anticoagulant Z79.01 Plan He remains on long-term medical therapy needing monitoring such as his statin therapy and anticoagulant therapy. A copy of his lipid profile will be requested for continuity of care. Plan Detail Other Medications New: Additional Comments Thank you for allowing me to participate in the care of your patient. Please don't hesitate to call if any issues arise. This note was generated using a voice recognition system and there may be incorrect words, spelling or punctuation that were not noted when reviewing the office note prior to saving. 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 [place], [place], [address] PROTHROMBIN TIME W/INR Collected: 09/23/2017 Status: F Source: [place] 11:35 AM [facility] [place] TYPE CODE TESTS RESULT OUT OF RANGE REFERENCE UNITS LAB L300.4150 11.7-14.9 SECONDS High PROTIME 28.6 LAB L300.4200 Normal INR 2.7 Performed By: #### L300.3900 #### [facility] [address] [place], [address] PACEMAKER CHECK Observed: 09/02/2017 Status: F Source: [place] 2:08 PM [facility] [place] [facility] [address] [place] [address] Pacemaker Check Date of Service: 09/01/171944 MR#: [id number] Acct: [id number] Name: ANGELITO BAIG Rep #: [id number] : 1940 From: Dori Dunaway Age/Sex: 77/M [place] [facility] [place] Signed Billing Codes PM Device Codes: PM Dev Interrogate (Remot 09/01/171945 <Electronically signed by Dori Dunaway > Date Dori Dunaway 09/02/17 1408<Electronically signed by Benjie Doran MD> Cosigner Signature: Date (if applicable) Benjie Doran MD CC: PROTHROMBIN TIME W/INR Collected: 08/22/2017 Status: F Source: [place] 2:28 PM [facility] REPOSITORY TYPE CODE TESTS RESULT OUT OF RANGE REFERENCE UNITS LAB L300.4150 11.7-14.9 SECONDS High PROTIME 31.0 LAB L300.4200 Normal INR 3.0 Performed By: #### L300.3900 #### [facility] [address] [place], [address] PACEMAKER CHECK Observed: 08/14/2017 Status: F Source: [place] 5:52 PM [facility] [place] [facility] [address] [place], [place] [address] Pacemaker Check Date of Service: 06/23/17 1121 MR#: [id number] Acct: [id number] Name: ANGELITO BAIG Rep #: [id number] : 1940 From: Dori Dunaway Age/Sex: 77/M [place] [facility] [place]: Signed Comments Summary Comments: Remote Dual Chamber Pacemaker Evaluation: See attached scanned remote Latitude report. Remote interrogation shows numerous MS episodes, 33% total time, 6 episodes >48hrs, and 745 NSVT episodes. Stored e-gram available for review show atrial flutter and atrial fib with RVR up to 180 bpm. Pt on Coumadin. No true VT/VF noted. Presenting rhythm shows Ventricular paced @ 68 ppm with underlying atrial flutter. FIBRE OPTIC CABLE SPLICER=10%. Estimated battery life 10 yesrs. Device and lead measurements remain stable. Normal remote PPM function. Pt notified remote transmission received and next f/u appt scheduled for in 3 mos. Device Device Date Interviewed: 06/23/17 Follow-up Location: remote Interview Reason: scheduled follow up Clinical Medical Transcriptionist: EdPuzzle Name: Essyancyo EL Model: L121 Serial #: Implant Date: 04/03/15 Year(s): 2 Implant Physician: Dr. Doran Patient Characteristics Atrial Indication: Atrial standstill Patient Substrate: Syncope Ejection fraction %: 55 to 59 (09/28/2014) By: Echo Underlying rhythm: Sinus bradycardia (Junctional rhythm) Pacemaker Dependent: No Device Characteristics Device: Dual Chamber Type: Pacemaker Remote Follow-Up: Latitude Leads Lead #1 Clinical Medical Transcriptionist Lead 1: Guidant Model Lead 1: 4136 Serial# Lead 1: [id number] Date Implanted Lead 1: 04/03/15 Position Lead 1: RA Lead #2 Clinical Medical Transcriptionist Lead 2: Guidant Model Lead 2: 4137 Serial# Lead 2: [id number] Date Implanted Lead 2: 04/03/14 Position Lead 2: RV Shawn Settings Shawn Settings Pacemaker Mode DDDR Output/Sensing V/PW (ms) 2.2/0.4 auto3.5/0.4 Sensitivity RA RV LV AGC 0.25 0.6 Comments: Billing Codes PM Device Codes: PM Dev Interrogate (Remot Assessment AND Plan Problems 1. Pacemaker Z95.0 2. Paroxysmal atrial fibrillation I48.0 3. Coronary artery disease involving big sandy coronary artery of big sandy heart without angina pectoris I25.10 08/14/17 1651 <Electronically signed by Dori Dunaway > Date Dori Dunaway 08/14/17 1752<Electronically signed by Taj Cabral MD> Cosigner Signature: Date (if applicable) Taj Cabral MD CC: PROTHROMBIN TIME W/INR Collected: 08/05/2017 Status: F Source: [place] 11:54 AM [facility] [place] TYPE CODE TESTS RESULT OUT OF RANGE REFERENCE UNITS LAB L300.4150 11.7-14.9 SECONDS High PROTIME 31.8 LAB L300.4200 Normal INR 3.1 Performed By: #### L300.3900 #### [facility] [address] [place], [address] PROTHROMBIN TIME W/INR Collected: 07/01/2017 Status: F Source: [place] 12:21 PM [facility] [place] TYPE CODE TESTS RESULT OUT OF RANGE REFERENCE UNITS LAB L300.4150 11.7-14.9 SECONDS High PROTIME 28.1 LAB L300.4200 Normal INR 2.6 Performed By: #### L300.3900 #### [facility] [address] [place], [address] PROTHROMBIN TIME W/INR Collected: 06/06/2017 Status: F Source: [place] 1:02 PM [facility] [place] TYPE CODE TESTS RESULT OUT OF RANGE REFERENCE UNITS LAB L300.4150 11.7-14.9 SECONDS High PROTIME 31.5 LAB L300.4200 Normal INR 3.0 Performed By: #### L300.3900 #### [facility] [address] [place], [address] PROTHROMBIN TIME W/INR Collected: 04/24/2017 Status: F Source: [place] 10:30 AM [facility] [place] Order Comment: Comments: standing order: 03/28/2017 to 03/28/2018 Comments: standing order: 03/28/2017 to 03/28/2018 TYPE CODE TESTS RESULT OUT OF RANGE REFERENCE UNITS LAB L300.4150 11.7-14.9 SECONDS High PROTIME 26.6 LAB L300.4200 Normal INR 2.4 Performed By: #### L300.3900 #### [facility] [address] [place], [address] PROTHROMBIN TIME W/INR Collected: 03/28/2017 Status: F Source: [place] 1:19 PM [facility] [place] TYPE CODE TESTS RESULT OUT OF RANGE REFERENCE UNITS LAB L300.4150 11.7-14.9 SECONDS High PROTIME 26.3 LAB L300.4200 Normal INR 2.5 Performed By: #### L300.3900 #### [facility] [address] [place], [address] OFFICE VISIT REPORT Observed: 03/17/2017 Status: F Source: [place] 6:10 PM [facility] [place] [facility] [address] [place] [address] OFFICE VISIT Date of Service: 03/10/17 MR#: [id number] Acct: [id number] Patient: ANGELITO BAIG Rep #: [id number] : 1940 Provider: Dori Dunaway Age/Sex: 76/M Location: [facility] [place] Status: Signed Comments Summary Comments: Remote Dual Chamber Pacemaker Evaluation: Remote interrogation shows numerous MS episodes, 5% total time and 33 NSVT episodes since 06/07/16. Stored e-grams for NSVT episodes show atrial fib with RVR and not true VT/VF. Present ATR in progress since 02/28/17. Presenting rhythm shows atrial fib with ventricular rate @ 92 bpm. FIBRE OPTIC CABLE SPLICER=1%. Battery longevity approx 11 yrs. lead impedances, sensing and auto pace/sense threshold remain stable. Normal remote PPM function. Pt notified remote transmission received and next f/u appt scheduled for in 3 mos. Device Device Date Interviewed: 03/10/17 Follow-up Location: remote Interview Reason: scheduled follow up Clinical Medical Transcriptionist: EdPuzzle Name: Essentio EL Model: L121 Serial #: Implant Date: 04/03/15 Year(s): 1 Implant Physician: Dr. Doran Patient Characteristics Atrial Indication: Atrial standstill (sinus arrest) Patient Substrate: Syncope Ejection fraction %: 55 to 59 (09/28/2014) By: Echo Underlying rhythm: Sinus bradycardia (Junctional rhythm) Pacemaker Dependent: No Device Characteristics Device: Dual Chamber Type: Pacemaker Remote Follow-Up: Latitude Leads Lead #1 Clinical Medical Transcriptionist Lead 1: Guidant Model Lead 1: 4136 Serial# Lead 1: [id number] Date Implanted Lead 1: 04/03/15 Position Lead 1: RA Lead #2 Clinical Medical Transcriptionist Lead 2: Guidant Model Lead 2: 4137 Serial# Lead 2: [id number] Date Implanted Lead 2: 04/03/14 Position Lead 2: RV Diagnostics Pacing % RA Pacin % RV Pacin Mode Switching % Mode switched: 5 Arrhythmias Non-Sust Episodes: 33 Measurements Battery Magnet Rate (bmp): 100 Battery Status: TRAE Predicted Remaining Longevity (months or years): 11 years RA Measurements Signal Amplitude (mV): 2.2 Impedance (Ohms): 637 RV Measurements Signal Amplitude (mV): 25 Impedance (Ohms): 857 Threshold Voltage: 0.7 @ PW(ms): 0.4 Shawn Settings Shawn Settings Pacemaker Mode DDDR Output/Sensing V/PW (ms) 2.2/0.4 auto3.5/0.4 Sensitivity RA RV LV AGC 0.25 0.6 Comments: Billing Codes PM Device Codes: PM Dev Interrogate (Remot Assessment AND Plan Problems 1. Pacemaker Z95.0 2. Paroxysmal atrial fibrillation I48.0 3. Coronary artery disease involving big sandy coronary artery of big sandy heart without angina pectoris I25.10 03/12/17 1439 <Electronically signed by Dori Dunaway > Date Dori Dunaway 03/17/17 1810<Electronically signed by Taj Cabral MD> Cosigner Signature: Date (if applicable) Taj Cabral MD CC: ALLERGIES ALLERGIES DATE TYPE / CODE NAME / CODE REACTION SEVERITY SOURCE 11/03/2017 Drug No Known Unknown [facility] Allergy/4160 Allergies/F00 [facility] 52595(SNOMED 0929496(RXNOR Repository CT) M) ENCOUNTERS ENCOUNTERS ADMIT/DISCHARGE ACCOUNT NUMBER ADMITTING ENCOUNTER LOCATION SOURCE CLASS 02/27/2018 [id number] Ambulatory [facility] ding:LAB Repository 01/27/2018/02/01/20 [id number] Ambulatory BBuilding:DR Alicia 18 [facility] Repository 01/27/2018/01/28/20 [id number] Ambulatory [address] ding:LAB Repository 01/07/2018/01/08/20 [id number] Ambulatory BMSBuilding: [address] Repository 12/29/2017/01/17/20 [id number] Ambulatory [address] ding:LAB Repository 11/21/2017/11/22/19 [id number] Ambulatory [place] 18 [facility] ding:LAB Repository 11/10/2017 [id number] Ambulatory Harleen Reddick [facility] ding:[facility] Repository 11/10/2017 [id number] Ambulatory BMSBuilding: Harleen [facility] Repository 11/03/2017/11/04/19 [id number] Ambulatory BMSBuilding: Harleen 18 [facility] Repository 10/27/2017 [id number] Ambulatory BMSBuilding: [place] [facility] Repository 10/21/2017/10/22/19 [id number] Ambulatory [place] Harleen 18 [facility] ding:LAB Repository 09/23/2017/10/21/19 [id number] Ambulatory Harleen [place] 18 [facility] ding:LAB Repository 09/01/2017/09/02/19 [id number] Ambulatory BMSBuilding: Harleen 18 [facility] Repository 08/22/2017/08/23/19 [id number] Ambulatory [place] Harleen 18 [facility] ding:LAB Repository 08/05/2017/08/06/19 [id number] Ambulatory Harleen [place] 18 [facility] ding:LAB Repository 07/01/2017/07/02/19 [id number] Ambulatory [place] 18 [facility] ding:LAB Repository 06/23/2017/06/24/19 [id number] Ambulatory BMSBuilding: [place] 18 [facility] Repository 06/06/2017/06/07/19 [id number] Ambulatory Harleen Harleen 18 [facility] ding:LAB Repository 04/24/2017 [id number] Ambulatory [place] Redd[place] [facility] ding:LAB Repository 03/28/2017/03/28/19 [id number] Ambulatory Harleen Harleen 18 [facility] ding:LAB Repository 03/10/2017/03/10/19 [id number] Ambulatory BMSBuilding: Harleen 18 [facility] Repository PAYERS PAYERS ENCOUNTER GUARANTOR PAYER SUBSCRIBER SOURCE 02/27/2018 ANGELITO BRAVO Primary ANGELITO BYRD: [place] KARLOS Insurance:ANTHEM [id number] [place] [facility] [address]Oix: [phone] Number: Repository [phone] (HP) [id number] Date:[id number] [address] [place] [address] 57291EL: 02/27/2018 Secondary NOT GIVENUNK [place] Insurance:SELF PAY [facility] Number: Effective Repository Date:2018-02-16 01/27/2018 ANGELITO BAIGB: Primary ANGELITO LORDB: [facility] Insurance:SIOBHAN LUNA [id number] [facility] [place], [place] Number: [place], [place] [address]Pey: [phone]) [id number]: (HP) Date:[id number] ()Tel: [phone]) Name:[phone] () [address] [place] [address] 214[address]WG: 01/27/2018 ANGELITO MUSE5 Primary ANGELITO LORDB: [place] KARLOS Insurance:ANTHEM [id number] [place] [facility] [address]Eur: [phone]) Number: Repository [phone] (HP) [id number] Date:[id number] [address] [place] [address] 12732MY: 01/27/2018 Secondary NOT GIVENUNK [place] Insurance:SELF PAY [facility] Number: Effective Repository Date:2018-01-19 01/07/2018 ANGELITO BAIG325 Primary ANGELITO BAIGB: [place] Insurance:ANTHEM [id number] [place] [facility] [id number]: [phone]) Number: Repository [phone] (HP) [id number] Date:[id number] [address] [place] [address] 64128HA: 01/07/2018 Secondary NOT GIVENUNK [place] Insurance:SELF PAY [facility] Number: Effective Repository Date:2018-01-07 12/29/2017 ANGELITO BAIG325 Primary ANGELITO LORDB: [place] KARLOS Insurance:ANTHEM [id number] [place] [facility] [id number]: [phone]) Number: Repository [phone] () [id number] Date:0833-16-35JK [address] [place] [address] 21728LG: 12/29/2017 Secondary NOT GIVENUNK Harleen Insurance:SELF PAY [facility] Number: Effective Repository Date:2017-12-18 11/21/2017 ANGELITO BAIG325 Primary ANGELITO LORDB: [place]ARLOS Insurance:ANTHEM [id number] [place] [facility] [id number]: (330) Number: Repository [phone] () [id number] Date:7895-68-09CT [address] [place] [address] 97896ZH: 11/21/2017 Secondary NOT GIVENUNK Harleen Insurance:SELF PAY [facility] Number: Effective Repository Date:2017-11-19 11/10/2017 ANGELITO BAIG325 Primary ANGELITO LORDB: [place] KARLOS Insurance:ANTHEM [id number] [place] [facility] [id number]: (330) Number: Repository [phone] () [id number] Date:1089-37-17DT [address] [place] [address] 95359TF: 11/10/2017 Secondary NOT GIVENUNK [place] Insurance:SELF PAY [facility] Number: Effective Repository Date:2017-11-03 11/10/2017 ANGELITO BAIG325 Primary ANGELITO LORDB: Harleen KARLOS Insurance:[employer] [id number] [place] [facility] [address]Ajr: (330) Number: Repository [phone] () [id number] Date:3651-30-63CB [id number] [place] [address] 53303AP: 11/10/2017 Secondary NOT GIVENUNK Harleen Insurance:SELF PAY [facility] Number: Effective Repository Date:2017-11-10 11/03/2017 ANGELITO BAIG325 Primary ANGELITO LORDB: Reddick KARLOS Insurance:[employer] [id number] [place] [facility] [id number]: (330) Number: Repository [phone] () [id number] Date:1638-41-84HR [id number] [place] [address] 32370UB: 11/03/2017 Secondary NOT GIVENUNK [place] Insurance:SELF PAY [facility] Number: Effective Repository Date:2017-11-03 10/27/2017 ANGELITO BAIG325 Primary ANGELITO BAIGDOB: Harleen KARLOS Insurance:[employer] [id number] [place] [facility] 32272Deg: (330) Number: Repository [phone] () [id number] Date:7797-63-99CJ [address] [place] [address] 05629QX: 10/27/2017 Secondary NOT GIVENUNK [place] Insurance:SELF PAY [facility] Number: Effective Repository Date:2017-10-27 10/21/2017 ANGELITO BAIG325 Primary ANGELITO LORDB: Reddick KARLOS Insurance:[employer] [id number] [place] [facility] 15784Bce: (330) Number: Repository [phone] () [id number] Date:1306-05-78WI [id number] [place] [address] 37565WC: 10/21/2017 Secondary NOT GIVENUNK [place] Insurance:SELF PAY [facility] Number: Effective Repository Date:2017-10-21 09/23/2017 ANGELITO BAIG325 Primary ANGELITO LORDB: Reddick KARLOS Insurance:[employer] [id number] [place] [facility] 00550Zik: (330) Number: Repository [phone] (HP) [id number] Date:3411-05-80RX [address] [place] [address] [place] 68475KS: 09/23/2017 Secondary NOT GIVENUNK Harleen Insurance:SELF PAY [facility] Number: Effective Repository Date:2017-09-18 09/01/2017 ANGELITO BAIG325 Primary ANGELITO BAIGDOB: Harleen KARLOS Insurance:[employer] [id number] [place] [facility] [id number]: (330) Number: Repository [phone] () [id number] Date:9616-92-66JS [address] [place] [address] [place] 96699VH: 09/01/2017 Secondary NOT GIVENUNK Harleen Insurance:SELF PAY [facility] Number: Effective Repository Date:2017-09-01 08/22/2017 ANGELITO Bray [id number] Primary ANGELITO BAIGDOB: Harleen KARLOS Insurance:[employer] [id number] [place] [facility] 08672Eri: (330) Number: Repository [phone] () [id number] Date:0772-61-49YJ [address] [place] [address] [place] 93938TS: 08/22/2017 Secondary NOT GIVENUNK Harleen Insurance:SELF PAY [facility] Number: Effective Repository Date:2017-08-15 08/05/2017 ANGELITO MUSE5 Primary ANGELITO BAIGDOB: Harleen KARLOS Insurance:[employer] [id number] [place] [facility] 42780Shs: (330) Number: Repository [phone] () [id number] Date:5708-08-77SU [address] [place] [address] [place] 05609HI: 08/05/2017 Secondary NOT GIVENUNK Harleen Insurance:SELF PAY [facility] Number: Effective Repository Date:2017-07-17 07/01/2017 ANGELITO MUSE5 Primary ANGELITO LORDB: Reddick KARLOS Insurance:[employer] [id number] [place] [facility] 65192Rdl: (330) Number: Repository [phone] () [id number] Date:2582-62-49FZ [address] [place] [address] 52248FE: 07/01/2017 Secondary NOT GIVENUNK [place] Insurance:SELF PAY [facility] Number: Effective Repository Date:2017-06-17 06/23/2017 ANGELITO BAIG325 Primary ANGELITO BAIGDOB: Harleen KARLOS Insurance:[employer] [id number] [place] [facility] [address]Jli: (330) Number: Repository [phone] () [id number] Date:1541-06-85CN [address] [place] [address] 05265XC: 06/23/2017 Secondary NOT GIVENUNK Harleen Insurance:SELF PAY [facility] Number: Effective Repository Date:2017-06-23 06/06/2017 ANGELITO BAIG325 Primary ANGELITO BAIGDOB: Reddick KARLOS Insurance:[employer] [id number] [place] [facility] 16063Ogy: (330) Number: Repository [phone] () [id number] Date:1693-02-13WK [address] [place] [address] 36954YG: 06/06/2017 Secondary NOT GIVENUNK Harleen Insurance:SELF PAY [facility] Number: Effective Repository Date:2017-04-17 04/24/2017 ANGELITO BAIG325 Primary ANGELITO BAIGDOB: Reddick KARLOS Insurance:[employer] [id number] [place] [facility] 18534Riu: (330) Number: Repository [phone] () [id number] Date:2542-13-35UL [id number] [place] [address] 66144EB: 04/24/2017 Secondary NOT GIVENUNK [place] Insurance:SELF PAY [facility] Number: Effective Repository Date:2017-04-24 03/28/2017 ANGELITO BAIG325 Primary ANGELITO LORDB: Harleen KARLOS Insurance:[facility] [id number] [place] [facility] 322[address]Ytt: (330) Number: Repository [phone] () [id number] Date:3818-65-87HT [address] [place] [address]ZT: 03/28/2017 Secondary NOT GIVENUNK Harleen Insurance:SELF PAY [facility] Number: Effective Repository Date:2017-03-21 03/10/2017 ANGELITO BAIG325 Primary ANGELITO LORDB: Reddick KARLOS Insurance:[facility] [id number] [place] [facility] [address]Bos: (330) Number: Repository [phone] () [id number] Date:5666-22-51HZ [address] [place] [address]BL: 03/10/2017 Secondary NOT GIVENUNK [place] Insurance:SELF PAY [facility] Number: Effective Repository Date:2017-03-10
== END 2018-01-27 10:00 | disposition home or self-care (01) ==
LOC: LAB 09:01
PROVIDERS: Referring Provider Internal Medicine Cardiovascular Disease; Visit Provider Internal Medicine Cardiovascular Disease
DX: I48.91 Unspecified atrial fibrillation (principal); I25.10 Atherosclerotic heart disease of native coronary artery without angina pectoris; Z79.01 Long term (current) use of anticoagulants; Z95.2 Presence of prosthetic heart valve
CPT/HCPCS: 36415; 85610

== ENCOUNTER 2018-02-27 13:16 | Outpatient (RCR) | payer MEDICARE, SELFPAY ==
[2018-02-27 14:24] LABS: International Normalized Ratio 2.3; Prothrombin Time (Protime)PT. 25.3 SECONDS (11.7-14.9)
== END 2018-02-27 14:16 | disposition home or self-care (01) ==
LOC: LAB 13:16
PROVIDERS: Referring Provider Internal Medicine Cardiovascular Disease; Visit Provider Internal Medicine Cardiovascular Disease
DX: I48.91 Unspecified atrial fibrillation (principal); I25.10 Atherosclerotic heart disease of native coronary artery without angina pectoris; Z79.01 Long term (current) use of anticoagulants; Z95.2 Presence of prosthetic heart valve
CPT/HCPCS: 36415; 85610

== ENCOUNTER 2018-04-02 15:59 | Outpatient (RCR) | payer MEDICARE, SELFPAY ==
[2018-04-02 16:48] LABS: International Normalized Ratio 2.7; Prothrombin Time (Protime)PT. 28.8 SECONDS (11.7-14.9)
== END 2018-04-16 16:00 | disposition home or self-care (01) ==
LOC: LAB 15:59
PROVIDERS: Referring Provider Internal Medicine Cardiovascular Disease; Visit Provider Internal Medicine Cardiovascular Disease
DX: I48.1 Persistent atrial fibrillation (principal); Z79.01 Long term (current) use of anticoagulants
CPT/HCPCS: 36415; 85610

== ENCOUNTER 2018-05-12 11:24 | Outpatient (RCR) | payer MEDICARE, SELFPAY ==
[2018-05-01 14:57] LABS: International Normalized Ratio 3.1; Prothrombin Time (Protime)PT. 32.2 SECONDS (11.7-14.9)
[2018-05-12 12:32] LABS: International Normalized Ratio 2.2; Prothrombin Time (Protime)PT. 24.7 SECONDS (11.7-14.9)
== END 2018-05-12 12:24 | disposition home or self-care (01) ==
LOC: LAB 11:24
PROVIDERS: Referring Provider Internal Medicine Cardiovascular Disease; Visit Provider Internal Medicine Cardiovascular Disease
DX: I48.91 Unspecified atrial fibrillation (principal); Z79.01 Long term (current) use of anticoagulants
CPT/HCPCS: 36415; 85610

== ENCOUNTER 2018-06-12 13:51 | Outpatient (RCR) | payer MEDICARE, SELFPAY ==
[2018-06-12 15:00] LABS: International Normalized Ratio 1.8; Prothrombin Time (Protime)PT. 20.7 SECONDS (11.7-14.9)
== END 2018-06-16 16:00 | disposition home or self-care (01) ==
LOC: LAB 13:51
PROVIDERS: Referring Provider Internal Medicine Cardiovascular Disease; Visit Provider Internal Medicine Cardiovascular Disease
DX: I48.1 Persistent atrial fibrillation (principal); Z79.01 Long term (current) use of anticoagulants
CPT/HCPCS: 36415; 85610

== ENCOUNTER 2018-06-25 11:34 | Outpatient (RCR) | payer MEDICARE, SELFPAY ==
[2018-06-25 12:33] LABS: International Normalized Ratio 2.5; Prothrombin Time (Protime)PT. 26.7 SECONDS (11.7-14.9)
== END 2018-06-25 13:00 | disposition home or self-care (01) ==
LOC: LAB 11:34
PROVIDERS: Referring Provider Internal Medicine Cardiovascular Disease; Visit Provider Internal Medicine Cardiovascular Disease
DX: I48.91 Unspecified atrial fibrillation (principal); Z79.01 Long term (current) use of anticoagulants
CPT/HCPCS: 36415; 85610

== ENCOUNTER 2018-07-23 10:57 | Outpatient (RCR) | payer MEDICARE, SELFPAY ==
[2018-07-23 11:34] LABS: International Normalized Ratio 2.6; Prothrombin Time (Protime)PT. 27.6 SECONDS (11.7-14.9)
== END 2018-07-23 11:00 | disposition home or self-care (01) ==
LOC: LAB 10:57
PROVIDERS: Referring Provider Internal Medicine Cardiovascular Disease; Visit Provider Internal Medicine Cardiovascular Disease
DX: I48.1 Persistent atrial fibrillation (principal); Z79.01 Long term (current) use of anticoagulants
CPT/HCPCS: 36415; 85610

== ENCOUNTER → 2018-08-11 | Outpatient (CLI) | payer MEDICARE, SELFPAY ==
--- NOTE | 2018-08-11 09:44 | CDU_ITS ---
Reason For Study: dizziness Rt. Velocities/BP Lt. Velocities/BP Prox CCA 82.6/14.7 cm/sec. Prox CCA 87.6/23.1 cm/sec. Mid CCA 66.9/14.7 cm/sec. Mid CCA 90.0/26.6 cm/sec. Dist CCA 69.5/16.0 cm/sec. Dist CCA 80.4/24.3 cm/sec. Prox ICA 193.8/53.3 cm/sec. Prox ICA 112.1/33.5 cm/sec. Mid ICA 215.8/47.4 cm/sec. Mid ICA 109.7/34.8 cm/sec. Dist ICA 126.7/27.2 cm/sec. Dist ICA 106.0/43.4 cm/sec. Rt. ICA/CCA = 3.2. Lt. ICA/CCA = 1.2. Prox ECA 82.6/5.6 cm/sec. Prox ECA 98.6/12.6 cm/sec. Rt. Vert. 83.7/18.5 cm/sec. Lt. Vert. 46.6/15.4 cm/sec. Right Extracranial There is homogeneous, smooth atherosclerotic plaque noted in the right common carotid artery. There is heterogeneous, irregular atherosclerotic plaque noted in the right internal carotid artery. There is intimal thickening but no significant atherosclerotic plaque noted in the right external carotid artery. Antegrade flow is noted in the right vertebral artery. Left Extracranial There is heterogeneous, irregular atherosclerotic plaque noted in the left common carotid artery. There is heterogeneous, irregular atherosclerotic plaque noted in the left internal carotid artery. There is intimal thickening but no significant atherosclerotic plaque noted in the left external carotid artery. Antegrade flow is noted in the left vertebral artery. Procedure Carotid Duplex [id number]. The exam was diagnostic. Exam performed in department. Interpretation Summary Moderate (50-69%) stenosis right extracranial internal carotid. Mild (<50%) stenosis left extracranial internal carotid. Flow within the vertebral arteries is antegrade bilaterally. Ordering Physician: Cris Vicente Performed By: Stefano Fuller RVT
== END | disposition home or self-care (01) ==
LOC: CVS 09:43
PROVIDERS: Referring Provider Physician Assistant Medical; Visit Provider Physician Assistant Medical
DX: R09.89 Other specified symptoms and signs involving the circulatory and respiratory systems (principal)
CPT/HCPCS: 93880

== ENCOUNTER 2018-08-31 12:39 | Outpatient (RCR) | payer MEDICARE, SELFPAY ==
[2018-08-03 13:21] VITALS: BMI 26.1
[2018-08-31 13:50] LABS: International Normalized Ratio 2.6; Prothrombin Time (Protime)PT. 28.3 SECONDS (11.7-14.9)
== END 2018-08-31 16:27 | disposition home or self-care (01) ==
LOC: LAB 12:39
PROVIDERS: Referring Provider Internal Medicine Cardiovascular Disease; Visit Provider Internal Medicine Cardiovascular Disease
DX: I48.1 Persistent atrial fibrillation (principal); Z79.01 Long term (current) use of anticoagulants
CPT/HCPCS: 36415; 85610

== ENCOUNTER 2018-10-07 13:05 | Outpatient (RCR) | payer MEDICARE, SELFPAY ==
[2018-08-03 13:21] VITALS: BMI 26.1
[2018-10-07 13:38] LABS: International Normalized Ratio 2.8; Prothrombin Time (Protime)PT. 29.3 SECONDS (11.7-14.9)
== END 2018-10-07 16:00 | disposition home or self-care (01) ==
LOC: LAB 13:05
PROVIDERS: Referring Provider Internal Medicine Cardiovascular Disease; Visit Provider Internal Medicine Cardiovascular Disease
DX: I48.1 Persistent atrial fibrillation (principal); Z79.01 Long term (current) use of anticoagulants
CPT/HCPCS: 36415; 85610

== ENCOUNTER 2018-11-06 12:22 | Outpatient (RCR) | payer MEDICARE, SELFPAY ==
[2018-08-03 13:21] VITALS: BMI 26.1
[2018-11-06 13:21] LABS: International Normalized Ratio 2.9; Prothrombin Time (Protime)PT. 30.8 SECONDS (11.7-14.9)
== END 2018-11-06 16:00 | disposition home or self-care (01) ==
LOC: LAB 12:22
PROVIDERS: Referring Provider Internal Medicine Cardiovascular Disease; Visit Provider Internal Medicine Cardiovascular Disease
DX: I48.1 Persistent atrial fibrillation (principal); Z79.01 Long term (current) use of anticoagulants
CPT/HCPCS: 36415; 85610

== ENCOUNTER 2018-12-11 14:24 | Outpatient (RCR) | payer MEDICARE, SELFPAY ==
[2018-08-03 13:21] VITALS: BMI 26.1
[2018-12-11 15:18] LABS: International Normalized Ratio 2.5; Prothrombin Time (Protime)PT. 27.1 SECONDS (11.7-14.9)
== END 2018-12-11 18:00 | disposition home or self-care (01) ==
LOC: LAB 14:24
PROVIDERS: Referring Provider Internal Medicine Cardiovascular Disease; Visit Provider Internal Medicine Cardiovascular Disease
DX: I48.19 Other persistent atrial fibrillation (principal); Z79.01 Long term (current) use of anticoagulants
CPT/HCPCS: 36415; 85610

== ENCOUNTER 2019-01-06 09:33 | Outpatient (RCR) | payer MEDICARE, SELFPAY ==
[2018-08-03 13:21] VITALS: BMI 26.1
[2019-01-06 10:42] LABS: International Normalized Ratio 2.3; Prothrombin Time (Protime)PT. 24.9 SECONDS (11.7-14.9)
== END 2019-01-06 18:00 | disposition home or self-care (01) ==
LOC: LAB 09:33
PROVIDERS: Referring Provider Internal Medicine Cardiovascular Disease; Visit Provider Internal Medicine Cardiovascular Disease
DX: I48.11 Longstanding persistent atrial fibrillation (principal); Z79.01 Long term (current) use of anticoagulants
CPT/HCPCS: 36415; 85610

== ENCOUNTER 2019-02-08 11:23 | Outpatient (RCR) | payer MEDICARE, SELFPAY ==
[2018-08-03 13:21] VITALS: BMI 26.1
[2019-02-08 12:36] LABS: International Normalized Ratio 2.6; Prothrombin Time (Protime)PT. 27.9 SECONDS (11.7-14.9)
== END 2019-02-08 18:00 | disposition home or self-care (01) ==
LOC: LAB 11:23
PROVIDERS: Referring Provider Internal Medicine Cardiovascular Disease; Visit Provider Internal Medicine Cardiovascular Disease
DX: I48.11 Longstanding persistent atrial fibrillation (principal); Z79.01 Long term (current) use of anticoagulants
CPT/HCPCS: 36415; 85610

== ENCOUNTER 2019-03-12 13:27 | Outpatient (RCR) | payer MEDICARE, SELFPAY ==
[2018-08-03 13:21] VITALS: BMI 26.1
[2019-03-12 14:46] LABS: International Normalized Ratio 2.9; Prothrombin Time (Protime)PT. 30.5 SECONDS (11.7-14.9)
== END 2019-03-12 18:00 | disposition home or self-care (01) ==
LOC: LAB 13:27
PROVIDERS: Referring Provider Internal Medicine Cardiovascular Disease; Visit Provider Internal Medicine Cardiovascular Disease
DX: I48.11 Longstanding persistent atrial fibrillation (principal); Z79.01 Long term (current) use of anticoagulants
CPT/HCPCS: 36415; 85610

== ENCOUNTER 2019-04-06 13:11 | Outpatient (RCR) | payer MEDICARE, SELFPAY ==
[2019-04-06 13:34] LABS: International Normalized Ratio 2.6; Prothrombin Time (Protime)PT. 27.7 SECONDS (11.7-14.9)
== END 2019-04-06 18:00 | disposition home or self-care (01) ==
LOC: LAB 13:11
PROVIDERS: Referring Provider Internal Medicine Cardiovascular Disease; Visit Provider Internal Medicine Cardiovascular Disease
DX: I48.19 Other persistent atrial fibrillation (principal); E11.9 Type 2 diabetes mellitus without complications; Z95.1 Presence of aortocoronary bypass graft; I43 Cardiomyopathy in diseases classified elsewhere; I49.3 Ventricular premature depolarization; I49.8 Other specified cardiac arrhythmias; Z95.0 Presence of cardiac pacemaker; Z95.3 Presence of xenogenic heart valve; Z79.01 Long term (current) use of anticoagulants
CPT/HCPCS: 36415; 85610

== ENCOUNTER 2019-04-30 10:06 | Outpatient (RCR) | payer MEDICARE, SELFPAY ==
[2018-08-03 13:21] VITALS: BMI 26.1
[2019-04-30 10:44] LABS: International Normalized Ratio 2.3; Prothrombin Time (Protime)PT. 25.1 SECONDS (11.7-14.9)
== END 2019-04-30 18:00 | disposition home or self-care (01) ==
LOC: LAB 10:06
PROVIDERS: Referring Provider Internal Medicine Cardiovascular Disease; Visit Provider Internal Medicine Cardiovascular Disease
DX: I48.11 Longstanding persistent atrial fibrillation (principal); E11.9 Type 2 diabetes mellitus without complications; I43 Cardiomyopathy in diseases classified elsewhere; I49.3 Ventricular premature depolarization; I49.8 Other specified cardiac arrhythmias; Z95.1 Presence of aortocoronary bypass graft; Z95.0 Presence of cardiac pacemaker; Z95.3 Presence of xenogenic heart valve; Z79.01 Long term (current) use of anticoagulants
CPT/HCPCS: 36415; 85610

== ENCOUNTER 2019-06-15 12:49 | Outpatient (RCR) | payer MEDICARE, SELFPAY ==
[2018-08-03 13:21] VITALS: BMI 26.1
[2019-06-15 14:11] LABS: International Normalized Ratio 2.9; Prothrombin Time (Protime)PT. 29.6 SECONDS (11.7-14.9)
== END 2019-06-17 18:00 | disposition home or self-care (01) ==
LOC: LAB 12:49
PROVIDERS: Referring Provider Internal Medicine Cardiovascular Disease; Visit Provider Internal Medicine Cardiovascular Disease
DX: I48.19 Other persistent atrial fibrillation (principal); E11.9 Type 2 diabetes mellitus without complications; Z95.1 Presence of aortocoronary bypass graft; I43 Cardiomyopathy in diseases classified elsewhere; I49.3 Ventricular premature depolarization; I49.8 Other specified cardiac arrhythmias; Z95.3 Presence of xenogenic heart valve; Z79.01 Long term (current) use of anticoagulants
CPT/HCPCS: 36415; 85610

== ENCOUNTER 2019-07-20 09:42 | Outpatient (RCR) | payer MEDICARE, SELFPAY ==
[2018-08-03 13:21] VITALS: BMI 26.1
[2019-07-20 10:24] LABS: International Normalized Ratio 2.5; Prothrombin Time (Protime)PT. 26.6 SECONDS (11.7-14.9)
== END 2019-07-20 18:00 | disposition home or self-care (01) ==
LOC: LAB 09:42
PROVIDERS: Referring Provider Internal Medicine Cardiovascular Disease; Visit Provider Internal Medicine Cardiovascular Disease
DX: I48.19 Other persistent atrial fibrillation (principal); E11.9 Type 2 diabetes mellitus without complications; I43 Cardiomyopathy in diseases classified elsewhere; I49.3 Ventricular premature depolarization; I49.8 Other specified cardiac arrhythmias; Z95.1 Presence of aortocoronary bypass graft; Z95.3 Presence of xenogenic heart valve; Z79.01 Long term (current) use of anticoagulants
CPT/HCPCS: 36415; 85610

== ENCOUNTER → 2019-08-11 | Outpatient (CLI) | payer MEDICARE, SELFPAY ==
[2019-08-02 11:02] VITALS: BMI 24.0
[2019-08-11 12:16] LABS: Anion Gap 6 (5-15); BUN 39 mg/dL (7-18); BUN/Creat Ratio 23.1 RATIO (10-20); Calcium,Total 9.3 mg/dL (8.5-10.1); Chloride 105 mmol/L (98-107); Creatinine, Serum 1.69 mg/dL (0.70-1.30); EST Glomerular Filtration Rate 42 mL/min (>60); Est Glom Filt Rate - Afr Amer 51 mL/min (>60); Glucose 246 mg/dL (74-106); Potassium 4.8 mmol/L (3.5-5.1); Sodium Level 138 mmol/L (136-145)
== END | disposition home or self-care (01) ==
LOC: LAB 11:13
PROVIDERS: Referring Provider Internal Medicine Cardiovascular Disease; Visit Provider Internal Medicine Cardiovascular Disease
DX: I25.10 Atherosclerotic heart disease of native coronary artery without angina pectoris (principal); I43 Cardiomyopathy in diseases classified elsewhere; I48.19 Other persistent atrial fibrillation; E78.00 Pure hypercholesterolemia, unspecified; I49.8 Other specified cardiac arrhythmias; Z95.1 Presence of aortocoronary bypass graft; Z79.01 Long term (current) use of anticoagulants; Z95.0 Presence of cardiac pacemaker; Z95.3 Presence of xenogenic heart valve
CPT/HCPCS: 36415; 80048